=== PATIENT | male | born 1980 | race Two or more races ===

== ENCOUNTER → 2017-03-06 | Outpatient (CLI) | payer OTHER ==
--- NOTE | 2017-03-06 14:05 | KCIC ---
Five views lumbar spine Indication: Reason For Study Reason: LOWER BACK PAIN X 2 MONTHS / Spl. Instructions: NO KNOWN INJURY / History: FINDINGS Alignment and curvature are within normal limits. No compression deformity. No pars defect. SI joints are open and corticated. There is degenerative disc height loss at L5-S1. IMPRESSION Degenerative disc disease at L5-S1 Electronically signed by: Charan Mondragon (March 06, 2017 14:04:24)
== END | disposition home or self-care (01) ==
LOC: KCIC 10:38
PROVIDERS: ATTEND Physician Assistant Medical
DX: M51.37 Other intervertebral disc degeneration, lumbosacral region (principal)
CPT/HCPCS: 72110